=== PATIENT | male | born 1985 | race Caucasian/White ===

== ENCOUNTER 2021-06-05 18:21 | Emergency (ER) | payer MEDICAID ==
[~2021-06-05] VITALS: Ht 170.2 cm; Wt 89.0 kg
[2021-06-05] MEDS ORDERED: ACETAMINOPHEN 500 MG TABLET PO ONE (19:15)
[2021-06-05] MEDS ORDERED: PERTUSS(ACELL),DIPH,TET VAC/PF 0.5 ML SYRINGE IM. ONE (19:15)
[2021-06-05] MEDS ORDERED: AMOX TR/POT CLAV 875 MG/125 MG TABLET PO ONE (19:15)
[2021-06-05 19:38] VITALS: BP 129/96
== END 2021-06-05 19:40 | disposition home or self-care (01) ==
LOC: EMS 18:23
DX: S61.312A Laceration without foreign body of right middle finger with damage to nail, initial encounter (principal); W45.8XXA Other foreign body or object entering through skin, initial encounter; Y93.89 Activity, other specified; Y92.89 Other specified places as the place of occurrence of the external cause; Y99.8 Other external cause status
CPT/HCPCS: 12001; 90471; 90715; 99283